=== PATIENT | female | born 1960 | race Caucasian/White ===

== ENCOUNTER 2024-04-17 04:18 | Day surgery (SDC) | payer OTHER, BC ==
[~2024-04-17] VITALS: Ht 172.7 cm; Wt 113.4 kg
[2024-04-17] VITALS (9 sets, daily range): BP systolic 127–158; BP diastolic 49–62
[2024-04-17] MEDS ORDERED: FentaNYL Citrate 50 MCG/ML 2 ML Injection IV PRN (04:25)
[2024-04-17] MEDS ORDERED: LOSA50 PO (04:28)
[2024-04-17] MEDS ORDERED: BUPR150ER PO (04:28)
[2024-04-17] MEDS ORDERED: VRAYLAR1.5 MG PO (04:29)
[2024-04-17] MEDS ORDERED: CELE100 (04:29)
[2024-04-17] MEDS ORDERED: EUTHYROX125 MCG PO (04:29)
[2024-04-17] MEDS ORDERED: Propofol 10mg/ml 20 ml Vial (Procedural) IV SCH (05:30)
[2024-04-17] MEDS ORDERED: NS 1,000 ML IV SCH (05:30)
[2024-04-17] MEDS ORDERED: Ketamine HCl 100 MG / ML 5ML Vial IV SCH (05:40)
[2024-04-17] MEDS ORDERED: Ondansetron HCl 2 MG / ML 2ML Vial ONE (06:11)
[2024-04-17] MEDS ORDERED: FentaNYL Citrate 50 MCG/ML 2 ML Injection ONE ×2 (06:13→09:24)
[2024-04-17] MEDS ORDERED: HYDROmorphone HCl/Pf 1MG SYR IV ONE (08:55)
[2024-04-17] MEDS ORDERED: Ketorolac Tromethamine 30mg Vial ONE (09:24)
[2024-04-17] MEDS ORDERED: propofoL 20 ML IV ONE (09:24)
[2024-04-17] MEDS ORDERED: Lactated Ringer's 1,000 ML IV ONE (10:15)
[2024-04-17] MEDS ORDERED: Lactated Ringer's 1,000 ML IV SCH (10:15)
[2024-04-17] MEDS ORDERED: HYDR1TAB94 PO (16:44)
== END 2024-04-17 17:10 | disposition home or self-care (01) ==
LOC: ER 04:18 → ORSCMMR 09:51 → ER 09:52 → ORSCMMR 09:52 → SURS 11:56 → ER 11:56 → SURS 12:00 → ORSCMMR 17:10 → SURS 17:10
PROVIDERS: Orthopaedic Surgery
PROC: 0SWRXJZ Revision of Synthetic Substitute in Right Hip Joint, Femoral Surface, External Approach (ICD-10-PCS; principal; 2024-04-17 12:30)
DX: T84.020A Dislocation of internal right hip prosthesis, initial encounter (principal); E03.9 Hypothyroidism, unspecified; I10 Essential (primary) hypertension; E66.9 Obesity, unspecified; F41.9 Anxiety disorder, unspecified; Z88.1 Allergy status to other antibiotic agents; Z79.899 Other long term (current) drug therapy; Z68.38 Body mass index [BMI] 38.0-38.9, adult; Z98.890 Other specified postprocedural states; Z98.84 Bariatric surgery status; Y93.41 Activity, dancing; W01.0XXA Fall on same level from slipping, tripping and stumbling without subsequent striking against object, initial encounter
CPT/HCPCS: 27265; 73502; 96374-59; 96375-59; 99152; 99153; 99285-25; J1171; J1885; J2405; J2704; J3010; J7030; J7120